=== PATIENT | female | born 1945 | race Caucasian/White ===

== ENCOUNTER 2017-04-13 12:52 | Inpatient (IN) | payer MEDICARE ==
[~2017-04-13] VITALS: Ht 162.6 cm; Wt 63.7 kg
[2017-04-13] MEDS ORDERED: ACETAMINOPHEN TAB 650MG DOSE (2X325MG) PO PRN (15:00)
[2017-04-13] MEDS ORDERED: FLEET ENEMA PR PRN (15:00)
[2017-04-13] MEDS ORDERED: MOM 30ML SUSPENSION UDC PO PRN (15:00)
[2017-04-13 15:03] VITALS: BP 162/86
[2017-04-13] MEDS ORDERED: LOVE1INJ SC (17:09)
[2017-04-13] MEDS ORDERED: ASPI81TA7 PO (17:09)
[2017-04-13] MEDS ORDERED: ATOR1TAB19 PO (17:09)
[2017-04-13] MEDS ORDERED: PANT40TA2 PO (17:12)
[2017-04-13] MEDS ORDERED: CYCL5TA PO (17:12)
[2017-04-13] MEDS ORDERED: NICODIS TD (17:12)
[2017-04-13] MEDS ORDERED: ENALAPRIL MALEATE 5 MG TAB PO ONE (18:15)
[2017-04-13 18:41] LABS: ANION GAP 9 MEQ/L (8-16); BLOOD UREA NITROGEN 19 MG/DL (7-18); CALCIUM LEVEL 8.9 MG/DL (8.8-10.2); CARBON DIOXIDE LEVEL 27 MEQ/L (21-32); CHLORIDE LEVEL 105 MEQ/L (98-107); GLOMERULAR FILTRATION RATE > 60.0 (>39); GLUCOSE, FASTING 155 MG/DL (83-110); POTASSIUM SERUM 4.1 MEQ/L (3.5-5.1); SODIUM LEVEL 141 MEQ/L (136-145)
--- NOTE | 2017-04-13 18:43 | PMRHPE ---
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 HISTORY OF PRESENT ILLNESS: Patient is a 72-year-old white female who was in her usual state of health until 04/10/2017 when she started to get progressively weaker with her right upper and lower extremity and having progressive difficulty speaking, feeling that her speech had become rather thick and cumbersome. Patient went to the [facility] and was evaluated and found to have sustained a left pontine cerebrovascular accident (CVA) causing her right hemiparesis. Patient is left hand dominant. PAST MEDICAL HISTORY: Includes 1. Atherosclerotic cardiovascular disease including hypertension and hyperlipidemia. 2. Tobacco dependence. 3. 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 PAST SURGICAL HISTORY: Includes a D C. ALLERGIES: PENICILLIN and AMOXICILLIN cause fairly immediate breakout of redness, itching, tenderness and swelling in the soles of the feet and palms of the hand progressing to heat and itching in the upper and lower extremities. FAMILY HISTORY: Noncontributory but patient notes her mother at an early age from unknown causes. MEDICATIONS ON ADMISSION: - Tylenol 650 mg for pain - enteric coated aspirin 81 mg daily for DVT and CVA prevention - atorvastatin 10 mg at bedtime for hyperlipidemia - Lovenox 40 mg every day for DVT prevention - Nicoderm patch 21 mg a day but I will be transitioning patient in a step waters decrease support team and 7 mg patches then stop - Pantoprazole 40 mg daily for GI protection - Milk of Magnesia for constipation - Senokot for bowel management - Fleet enema as needed constipation SOCIAL HISTORY: Patient lives with her sister. She has 2-4 steps into the house and then her bedroom is upstairs, though it can be moved downstairs initially. Patient does smoke. REVIEW OF SYSTEMS: Patient notes no significant problems outside the dysarthric speech, the intention tremor in the left upper extremity, the right hemiparesis and balance deficit. PHYSICAL EXAMINATION: Patient is a well-nourished, well-developed 72-year-old white female who looks slightly younger than stated age. She is in good spirits. VITAL SIGNS: Showed temperature 97.7, blood pressure of 162/86, pulse 84, respirations 18, pulse oximetry 92% on room air. HEENT: Shows right facial drop, tongue however is midline when extended. Speech is mildly dysarthric. Oral pharynx is without lesions. Nares show no blockage and septum is straight. Pupils equal, round, and reactive to light and accommodation and extraocular motions are intact. Hearing is fairly good. NECK: Is supple with normal motion. No significant lymph nodes found. Thyroid is midline and smooth of normal size. There are no carotid bruits. LUNGS: Clear in all birch to auscultation. CORONARY: Shows regular rate and rhythm with normal S1 and S2 and 2/4 radial pulses with good finger perfusion. ABDOMEN: Shows mild gaseous distention with tympany in spots throughout all quadrants, but normal bowel sounds and no significant tenderness were found in all quadrants. BACK: Is essentially non-tender. EXTREMITIES: Upper and lower extremities with normal function and range of motion. Patient with no resting tremor, but when she goes to write her name has marked intention tremor in the left upper extremity. NEUROLOGIC: She is alert and oriented times 4. Speech is clear, coherent and appropriate. Affect is pleasant, cooperative. Memory is grossly intact. Motor shows mild weakness in the right upper and lower extremity and sensorium is grossly intact to light touch and vibration in bilateral upper and lower extremities with 2/4 knee jerks, biceps, triceps, brachial radialis, trace ankle jerk and downgoing toes on plantar stimulation. Mood is good. Patient is pleasant and cooperative. LABORATORY DATA: Patient's laboratory work up at [facility] does not show anemia and showed normal electrolytes, LFTs, troponin and serum magnesium with INR being normal at 1.02. Cerebral imaging shows approximately a 1 cm left pontine CVA. ASSESSMENT/PLAN: 1. Rehabilitation of left pontine cerebrovascular accident (CVA) with secondary right hemiparesis, decreased balance, dysarthria with no clear apparent aphasia or dysphasia noted. Patient comes to us on a low-salt diet after being evaluated at [facility]. Patient however, has diminished ADLs, balance as well as mobility including her stairs and will need to make significant gains in these to allow return to home with her sister to provide some help and assistance. I feel patient will definitely speech and language pathology evaluation. I will submit for that as well as physical and occupational therapy. I anticipate length of stay to be 10-14 days will adjustment as heme evaluation is completed. 2. Atherosclerotic cardiovascular disease. Patient with hypertension on arriving following an [id number] trip with systolic blood pressure of 162/86. We will continue to monitor this and get medicine consult. Make consider adding a hypertensive medication if hypertension persists. 3. Intension tremor. Source is unknown and this has been a problem for the patient for a number of years. Depending on how patient is progressing, we will consider neurology consult to consider for medication to manage this as an inpatient versus having patient see neurology as an outpatient for this. 4. Tobacco dependent. We will go ahead and continue patient on Nicoderm and decrease from the current 21 mg to 14 mg starting on Tuesday, and the following Tuesday transition down to 7 mg with 24 hour patch and do that for a week and have patient discontinue. 5. Hyperlipidemia. We will go ahead and continue patient on atorvastatin. 6. Deep vein thrombosis prophylaxis. We will proceed with the enteric coated aspirin and Lovenox 40 mg as well as thromboembolic deterrent hose. (DIVYA). POST ADMISSION PHYSICIAN EVALUATION: I feel patient is consistent with the preadmission screening information and does appear to be very motivated to participate in and benefit from therapy and does appear to have the physical ability and induration to do the 3 hours of therapy per day. I anticipate she has a good prognosis for being able to be discharged to home with her sister who provides some help. Her estimated length of stay is 10-14 days. Time spent on chart review, H P, and documentation is greater than 70 minutes.
--- NOTE | 2017-04-13 19:26 | CR ---
DATE OF CONSULTATION: 04/13/2017 ATTENDING PHYSICIAN: Mindy Leon MD REASON FOR CONSULTATION: Hypertension. REQUESTING PHYSICIAN: Lobito Aguero MD of and R, PRIMARY CARE PROVIDER: None. DATE OF ADMISSION: 04/13/2017 HISTORY OF PRESENT ILLNESS: Ms. Souza is a 72-year-old female with past medical history significant for tobacco use who presented to [facility] on April 10 with complaints of right-sided weakness and difficulty walking that began on April 08. The patient reported that she had upper and lower extremity right-sided weakness and also had thick/slow speech. Evaluation at [facility] revealed normal CBC, CMP and troponin. She had a head CT which did not reveal any acute pathology, just periventricular white matter ischemia and atrophy. She had an MRI of the brain which revealed a 1 cm left pontine infarct. EKG was normal sinus rhythm at a heart rate of 95. No acute changes. She had an echocardiogram, which revealed normal left ventricular function, ejection fraction (EF) of 60%, normal right ventricular size, no significant valvular disease, negative bubble study. Carotid ultrasound revealed less than 50% stenosis bilaterally. Lipid profile revealed a cholesterol of 201, LDL 128, HDL 48 and triglyceride 156. She was initiated on aspirin and Lipitor as well as a nicotine patch. She started working with physical therapy and it was deemed that she would benefit from further therapy and was discharged to [facility] rehab. The patient reports continued weakness on the right upper and lower extremity. She does not feel that her speech has improved. She reports that it "thick" and slower than her baseline. She denies any trouble swallowing. No facial asymmetry. She is left-hand dominant. No sensory deficits. She denies any headache, lightheadedness or dizziness. No blurry/double vision or acute changes to her vision. No fevers, chills, chest pain/pressure, palpitations, shortness of breath, nausea, vomiting, abdominal pain, diarrhea, constipation, hematochezia or melena or urinary complaints. She ate her dinner well without any difficulty with swallowing. Speech is not significantly changed, still reports that it is slow and thick. The patient was found to have elevated blood pressure of 162/86, other vitals were stable. Given her elevated blood pressure, hospitalist consult was requested. PAST MEDICAL HISTORY: None. The patient does not have a primary care provider. PAST SURGICAL HISTORY: Dilation and curettage (D and C) [place] tooth. CURRENT MEDICATIONS - aspirin 81 mg daily - atorvastatin 10 mg by mouth at night - nicotine patch 21 mg transdermal daily - Protonix 40 mg daily - Flexeril 5 mg by mouth three times daily as needed ALLERGIES: PENICILLIN (rash and pruritus). SOCIAL HISTORY: The patient quit smoking this Tuesday. She was admitted into the hospital. She reports that she has smoked a little less than half a pack for about 50 years. Rare alcohol use. No illicit drugs. She lives with her sister. There are two dogs and two cats in the home, two horses in the barn. Last travel was in October to [place]. She does not work outside of the home. FAMILY HISTORY: She has two children, one daughter at the age of 39. Mother of unknown causes. She has a brother with MS. She reports that her sister received cardiac stents in her 40s. REVIEW OF SYSTEMS: As stated in HPI. In addition she denies any significant weight loss. No cough. No dysuria or hematuria. No unusual skin lesions. No history of diabetes or thyroid disorder. No history of previous stroke. No family history of stroke. No excessive bleeding or bruising. PHYSICAL EXAMINATION: Vital signs: Temperature 97.7, pulse 87, respiratory rate 18, blood pressure 162/86, pulse oximetry 92% on room air. General: The patient is alert and oriented times three. In no acute distress. HEENT: Normocephalic , atraumatic. Extraocular muscles are intact. Pupils are equally round and reactive to light. No scleral icterus. No nystagmus. Moist mucosa. Has a resting head tremor. Neck: Supple. No cervical lymphadenopathy or thyromegaly. There are no carotid bruits. Heart: Normal S1-S2, regular rate and rhythm. No murmur appreciated. Lungs: Clear to auscultation bilaterally. No rales, rhonchi or wheezing. Abdomen: Soft, nontender, nondistended. Positive bowel sounds. No rebound, guarding or rigidity. Extremities: No cyanosis or edema. Positive pedal pulses bilaterally. Neurologic: The patient's speech is slow but coherent. Cranial nerves II-XII are grossly intact. Reflexes are intact. Motor strength is 4/5 for the right upper extremity. All other extremities are 5/5. Sensation is intact. Skin: Warm and dry. No significant rashes noted. Good skin turgor. LABORATORY DATA: None. IMAGING STUDIES: None here at [facility]. In addition to the aforementioned she also had a chest x-ray which did not reveal any acute pathology at [facility]. ASSESSMENT/PLAN: 1. CVA with right-sided weakness and expressive aphasia. The patient will be undergoing physical therapy. She is on aspirin 81 mg daily as well as Lipitor 10 mg daily. She was found to have a 1 cm left pontine infarct on MRI. She is to continue with rehabilitation. 2. Hypertension. Blood pressure was 162/86. She was diagnosed with this CVA on April 10. Permissive hypertension is no longer necessary. Will treat her with enalapril 5 mg twice daily and continue to monitor her blood pressure. 3. Tobacco use. The patient is currently on nicotine patch. 4. Deep venous thrombosis (DVT) prophylaxis. She appears to be on Lovenox daily. Thank you for the consultation and allowing us to participate in the care of Ms. Souza. We will continue to follow along with you. My preceptor for this patient encounter was Dr. Mindy Leon. The preceptor was physically present in the building during the encounter and was fully available. As needed, all aspects of the patient interview, examination, medical decision making process, and medical care plan development were reviewed and approved by the preceptor. The preceptor is aware and concurs with the plan as stated in the body of this note and will attest to such by his/her cosignature. I have both independently examined this patient as well as reviewed the consult. I have discussed in detail with the resident the findings and plan of treatment as documented in the residents note. I will continue to follow the patient and offer further guidance to the patients care as necessary during this hospital stay. Mindy JO
[2017-04-13] MEDS: ATORVASTATIN 10 MG TAB PO SCH (20:10)
[2017-04-13 20:42] VITALS: BP 136/78
[2017-04-13] MEDS: SENNA 8.6 MG TAB (SENOKOT) PO SCH (21:00)
[2017-04-14 06:40] VITALS: BP 125/62
[2017-04-14 07:27] LABS: BASO % 0.3 % (0.0-1.0); EOS # 0.2 K/mm3 (0.0-0.50); EOS % 1.8 % (0.0-3.0); LARGE UNSTAINED CELL # 0.1 K/mm3 (0.0-0.4); LARGE UNSTAINED CELL % 0.8 % (0.0-4.0); LYMPH % 18.6 % (24.0-44.0); MEAN CORPUSCULAR HEMOGLOBIN 28.3 pg (27.0-33.0); MEAN CORPUSCULAR HGB CONC 33.3 g/dl (32.0-36.5); MEAN CORPUSCULAR VOLUME 84.8 fl (80.0-96.0); MONO # 0.5 K/mm3 (0.0-0.8); MONO % 4.9 % (0.0-5.0); NEUTROPHILS # 7.5 K/mm3 (1.8-7.7); NEUTROPHILS % 73.6 % (36.0-66.0); PLATELET COUNT, AUTOMATED 233 k/mm3 (150-450); RED CELL DISTRIBUTION WIDTH 12.8 % (11.5-14.5); WHITE BLOOD COUNT 10.2 K/mm3 (4.0-10.0)
[2017-04-14 07:50] LABS: ALBUMIN 3.3 GM/DL (3.2-5.2); ALBUMIN/GLOBULIN RATIO 1.27 (1.00-1.93); ALKALINE PHOSPHATASE 79 U/L (45-117); ALT/SGPT 18 U/L (12-78); ANION GAP 9 MEQ/L (8-16); AST/SGOT 7 U/L (15-37); BILIRUBIN,TOTAL 0.5 MG/DL (0.2-1.0); BLOOD UREA NITROGEN 18 MG/DL (7-18); CALCIUM LEVEL 8.5 MG/DL (8.8-10.2); CARBON DIOXIDE LEVEL 26 MEQ/L (21-32); CHLORIDE LEVEL 107 MEQ/L (98-107); CREATININE FOR GFR 0.75 MG/DL (0.55-1.02); GLOMERULAR FILTRATION RATE > 60.0 (>39); GLUCOSE, FASTING 112 MG/DL (83-110); POTASSIUM SERUM 4.3 MEQ/L (3.5-5.1); SODIUM LEVEL 142 MEQ/L (136-145); TOTAL PROTEIN 5.9 GM/DL (6.4-8.2)
[2017-04-14] MEDS: PANTOPRAZOLE 40MG TAB (PROTONIX) PO SCH (08:31)
[2017-04-14] MEDS: ENALAPRIL MALEATE 5 MG TAB PO SCH ×2 (08:31→20:26)
[2017-04-14] MEDS: NICOTINE 21MG/24HR 1 EA TRANSDERMAL TD SCH (08:32)
[2017-04-14] MEDS: ENOXAPARIN 40 MG/0.4 ML SYRINGE (J1650) SC SCH (08:32)
[2017-04-14] MEDS: ASPIRIN 81 MG ENTERIC TAB PO SCH (11:03)
--- NOTE | 2017-04-14 11:20 | IPNPDOC ---
Dolly Operator Progress Note DATE OF SERVICE: 04/14/2017 DATE OF ADMISSION: April 13, 2017 at 14:50 INPATIENT REHABILITATION ADMISSION DAY: #1 SUBJECTIVE: Patient is a 72-year-old white female with left pontine CVA with right hemiparesis and dysarthria. Patient reports having slept well and overall feeling well with no come planes of pain or other problems except for her stroke. ALLERGIES: See Below MEDICATIONS: Reviewed, see below. OBJECTIVE: VITAL SIGNS: Please see below. PHYSICAL EXAMINATION: GENERAL: Well-nourished well-developed elderly white female who is alert and oriented 4. Speech remains mild to moderately dysarthric but no gurgling noises are appreciated and the quality is speech is appropriate in complexity. HEENT: Mild right facial droop. CARDIOVASCULAR: Regular rate and rhythm with normal S1 and S2. 2/4 radial pulses. LUNGS: All birch clear to auscultation. ABDOMEN: Benign, nontender with normal bowel sounds in all quadrants. NEUROLOGICAL: Patient with mild right hemiparesis is in good spirits. SKIN: No lesions. LABORATORY DATA: Reviewed. Please see below. MICROBIOLOGY: Please see below. IMAGING: No new imaging. DVT prophylaxis ordered?: Lovenox and DIVYA hose. ASSESSMENT AND PLAN: 1. Rehabilitation of left pontine CVA: Patient starting team evaluation process to be discussed this afternoon in team rounds by PT, OT and speech-language pathology along with rehabilitation nursing and physiatry. Team feels patient is doing well and should meet d/c to home goals by 04/20/17 as she is using a Quad Cane now. 2. Diabetes mellitus: Blood sugars have been fairly well controlled since transfer to this unit. 3. DVT prophylaxis: Patient appears to be tolerating Lovenox injections and will continue with DIVYA hose and work to advance gaiting. TIME SPENT: Chart Review, examination and documentation greater than 35 minutes. Allergies Coded Allergies: Penicillins (Verified Allergy, Intermediate, Purititic rash of soles/ palms then red warm limbs, 04/13/17) PCN and Amoxicillin Vital Signs Vital Signs Date Time Temp Pulse Resp B/P (MAP) Pulse Ox O2 Delivery O2 Flow Rate FiO2 04/14/17 08:31 136/78 04/14/17 06:40 99.4 73 18 92 Room Air Laboratory Data CBC/BMP Laboratory Tests 04/13/17 17:49 Calcium Level 8.9 04/14/17 07:10 Calcium Level 8.5 L, Red Blood Count 4.86, Mean Corpuscular Volume 84.8, Mean Corpuscular Hemoglobin 28.3, Mean Corpuscular Hemoglobin Concent 33.3, Red Cell Distribution Width 12.8, Neutrophils (%) (Auto) 73.6 H, Lymphocytes (%) (Auto) 18.6 L, Monocytes (%) (Auto) 4.9, Eosinophils (%) (Auto) 1.8, Basophils (%) ( Auto) 0.3, Neutrophils # (Auto) 7.5, Lymphocytes # (Auto) 2.0, Monocytes # (Auto ) 0.5, Eosinophils # (Auto) 0.2, Basophils # (Auto) 0.0, Aspartate Amino Transf (AST/SGOT) 7 L, Alanine Aminotransferase (ALT/SGPT) 18, Alkaline Phosphatase 79 , Total Bilirubin 0.5, Total Protein 5.9 L, Albumin 3.3 Labs 24H Laboratory Tests 2 04/13/17 17:49: Anion Gap 9, Glomerular Filtration Rate > 60.0, Blood Urea Nitrogen 19H, Creatinine 0.80, Sodium Level 141, Potassium Level 4.1, Chloride Level 105, Carbon Dioxide Level 27, Calcium Level 8.9 04/13/17 20:01: Urine Appearance CLEAR, Urine Color YELLOW, Urine pH 5.0, Urine Specific [place] 1.016, Urine Protein NEGATIVE, Urine Glucose (UA) NEGATIVE, Urine Ketones NEGATIVE, Urine Urobilinogen 0.2, Urine Bilirubin NEGATIVE, Urine Leukocyte Esterase 1+H, Urine Blood NEGATIVE, Urine Nitrite NEGATIVE, Urine WBC (Auto) 6H, Urine RBC (Auto) 4H, Urine Hyaline Casts (Auto) 0, Urine Bacteria ( Auto) 2+H, Urine Squamous Epithelial Cells 2, Urine Mucus (Auto) SMALL, Urine Sperm (Auto) 04/14/17 07:10: Anion Gap 9, Glomerular Filtration Rate > 60.0, Blood Urea Nitrogen 18, Creatinine 0.75, Sodium Level 142, Potassium Level 4.3, Chloride Level 107, Carbon Dioxide Level 26, Calcium Level 8.5L, White Blood Count 10.2H, Red Blood Count 4.86, Hemoglobin 13.7, Hematocrit 41.2, Mean Corpuscular Volume 84.8, Mean Corpuscular Hemoglobin 28.3, Mean Corpuscular Hemoglobin Concent 33.3, Red Cell Distribution Width 12.8, Platelet Count 233, Neutrophils (%) (Auto) 73.6H, Lymphocytes (%) (Auto) 18.6L, Monocytes (%) (Auto) 4.9, Eosinophils (%) (Auto) 1.8, Basophils (%) (Auto) 0.3, Neutrophils # (Auto) 7.5, Lymphocytes # (Auto) 2.0, Monocytes # (Auto) 0.5, Eosinophils # (Auto) 0.2, Basophils # (Auto) 0.0, Large Unclassified Cells % 0.8, Large Unclassified Cells # 0.1, Aspartate Amino Transf (AST/SGOT) 7L, Alanine Aminotransferase (ALT/SGPT) 18, Alkaline Phosphatase 79, Total Bilirubin 0.5, Total Protein 5.9L, Albumin 3.3, Albumin/ Globulin Ratio 1.27 Current Medications Current Medications Current Medications Acetaminophen (Tylenol Tab) 650 mg Q4HP PRN PO MILD PAIN (PS 1-4); Start at 15:00; Stop 05/13/17 at 14:59 Aspirin (Ecotrin) 81 mg DAILY PO Last administered on 04/14/17 11:03; Start at 09:00; Stop 05/14/17 at 08:59 Atorvastatin Calcium (Lipitor) 10 mg QHS PO Last administered on 04/13/17 20: 10; Start 04/13/17 at 21:00; Stop 05/13/17 at 20:59 Enalapril Maleate (Vasotec) 5 mg BID PO Last administered on 04/14/17 08:31; Start 04/14/17 at 09:00; Stop 05/14/17 at 08:59 Enoxaparin Sodium (Lovenox) 40 mg DAILY SC Last administered on 04/14/17 08:32 ; Start 04/14/17 at 09:00; Stop 04/19/17 at 08:59 Home Med (Med Rec Complete!) ASDIRECTED XX ; Start 04/13/17 at 17:15; Stop at 17:58; Status DC Magnesium Hydroxide (Milk Of Magnesia) 30 ml DAILYPRN PRN PO CONSTIPATION; Start 04/13/17 at 15:00; Stop 05/13/17 at 14:59 Nicotine (Nicoderm Cq 14mg) 1 patch DAILY TD ; Start 04/16/17 at 09:00; Stop 04/23/17 at 06:00 Nicotine (Nicoderm Cq 21mg) 1 patch DAILY TD Last administered on 04/14/17 08: 32; Start 04/14/17 at 09:00; Stop 04/16/17 at 06:00 Nicotine (Nicoderm Cq 7 Mg) 1 patch DAILY TD ; Start 04/23/17 at 09:00; Stop 04/29 at 09:00 Pantoprazole Sodium (Protonix) 40 mg DAILY PO Last administered on 04/14/17 08 :31; Start 04/14/17 at 09:00; Stop 05/14/17 at 08:59 Senna (Senokot) 1 tab QHS PO ; Start 04/13/17 at 21:00; Stop 05/13/17 at 20:59 Sodium Biphosphate/ Sodium Phosphate (Fleet Enema) 1 ea DAILYPRN PRN [place] CONSTIPATION; Start 04/13/17 at 15:00; Stop 05/13/17 at 14:59 CINDY VYAS MD April 14, 2017 11:20
--- NOTE | 2017-04-14 11:41 | IPNPDOC ---
Subjective Date Seen The patient was seen on 04/14/17. Subjective Chief Complaint/HPI The patient is a 72-year-old female admitted with a reason for visit of CVA. Events since last encounter Pt states she is feeling well and has no complaints. ENT: Denies: Head Aches, Ear Pain, Dysphagia Pulmonary: Denies: Dyspnea, Cough Cardiovascular: Denies: Chest Pain, Palpitations, Orthopnea, Paroxysmal Noc. Dyspnea, Lt Headedness Gastrointestinal: Denies: Nausea, Vomiting, Abdominal Pain, Diarrhea, Constipation Genitourinary: Denies: Dysuria, Frequency, Incontinence, Retention Objective Physical Examination General Exam: Positive: Alert Eye Exam: Positive: PERRLA ENT Exam: Positive: Atraumatic Neck Exam: Positive: Supple Chest Exam: Positive: Clear to auscultation, Normal air movement Heart Exam: Positive: Rate Normal, Regular Rhythm, Normal S1, Normal S2, Negative: Murmurs, Rubs Abdomen Exam: Positive: Normal bowel sounds, Soft, Negative: Tenderness, Hepatospenomegaly Skin Exam: Positive: Nl turgor and temperature Assessment /Plan Problems (1) CVA (cerebral vascular accident) Problem Text: * Mgmt as per Sr [place]/ARU * PT/OT/ST * ASA 81mg/statin. (2) HTN (hypertension) Problem Text: * Cont Vasotec * BMP today stable renal function. * BP controlled. (3) Hyperlipemia Problem Text: * Cont statin (4) Tobacco use Problem Text: * Nicoderm * Cont to encourage cessation. Plan/VTE VTE Prophylaxis Ordered?: Yes (lovenox) Disposition as per ARU VS, I&O, 24H, [place] Vital Signs/I&O Vital Signs Date Time Temp Pulse Resp B/P (MAP) Pulse Ox O2 Delivery O2 Flow Rate FiO2 04/14/17 08:31 136/78 04/14/17 06:40 99.4 73 18 92 Room Air I&O- Last 24 Hours up to 6 AM 04/14/17 06:00 Intake Total 360 ml Output Total 150 ml Balance 210 ml Laboratory Data 24H LABS Laboratory Tests 2 04/13/17 17:49: Anion Gap 9, Glomerular Filtration Rate > 60.0, Blood Urea Nitrogen 19H, Creatinine 0.80, Sodium Level 141, Potassium Level 4.1, Chloride Level 105, Carbon Dioxide Level 27, Calcium Level 8.9 04/13/17 20:01: Urine Appearance CLEAR, Urine Color YELLOW, Urine pH 5.0, Urine Specific [place] 1.016, Urine Protein NEGATIVE, Urine Glucose (UA) NEGATIVE, Urine Ketones NEGATIVE, Urine Urobilinogen 0.2, Urine Bilirubin NEGATIVE, Urine Leukocyte Esterase 1+H, Urine Blood NEGATIVE, Urine Nitrite NEGATIVE, Urine WBC (Auto) 6H, Urine RBC (Auto) 4H, Urine Hyaline Casts (Auto) 0, Urine Bacteria ( Auto) 2+H, Urine Squamous Epithelial Cells 2, Urine Mucus (Auto) SMALL, Urine Sperm (Auto) 04/14/17 07:10: Anion Gap 9, Glomerular Filtration Rate > 60.0, Blood Urea Nitrogen 18, Creatinine 0.75, Sodium Level 142, Potassium Level 4.3, Chloride Level 107, Carbon Dioxide Level 26, Calcium Level 8.5L, White Blood Count 10.2H, Red Blood Count 4.86, Hemoglobin 13.7, Hematocrit 41.2, Mean Corpuscular Volume 84.8, Mean Corpuscular Hemoglobin 28.3, Mean Corpuscular Hemoglobin Concent 33.3, Red Cell Distribution Width 12.8, Platelet Count 233, Neutrophils (%) (Auto) 73.6H, Lymphocytes (%) (Auto) 18.6L, Monocytes (%) (Auto) 4.9, Eosinophils (%) (Auto) 1.8, Basophils (%) (Auto) 0.3, Neutrophils # (Auto) 7.5, Lymphocytes # (Auto) 2.0, Monocytes # (Auto) 0.5, Eosinophils # (Auto) 0.2, Basophils # (Auto) 0.0, Large Unclassified Cells % 0.8, Large Unclassified Cells # 0.1, Aspartate Amino Transf (AST/SGOT) 7L, Alanine Aminotransferase (ALT/SGPT) 18, Alkaline Phosphatase 79, Total Bilirubin 0.5, Total Protein 5.9L, Albumin 3.3, Albumin/ Globulin Ratio 1.27 CBC/BMP Laboratory Tests 04/13/17 17:49 Calcium Level 8.9 04/14/17 07:10 Calcium Level 8.5 L, Red Blood Count 4.86, Mean Corpuscular Volume 84.8, Mean Corpuscular Hemoglobin 28.3, Mean Corpuscular Hemoglobin Concent 33.3, Red Cell Distribution Width 12.8, Neutrophils (%) (Auto) 73.6 H, Lymphocytes (%) (Auto) 18.6 L, Monocytes (%) (Auto) 4.9, Eosinophils (%) (Auto) 1.8, Basophils (%) ( Auto) 0.3, Neutrophils # (Auto) 7.5, Lymphocytes # (Auto) 2.0, Monocytes # (Auto ) 0.5, Eosinophils # (Auto) 0.2, Basophils # (Auto) 0.0, Aspartate Amino Transf (AST/SGOT) 7 L, Alanine Aminotransferase (ALT/SGPT) 18, Alkaline Phosphatase 79 , Total Bilirubin 0.5, Total Protein 5.9 L, Albumin 3.3 Bethanie Lockhart April 14, 2017 11:41
[2017-04-14 14:00] VITALS: BP 142/66
[2017-04-14] MEDS: SENNA 8.6 MG TAB (SENOKOT) PO SCH (20:26)
[2017-04-14] MEDS: ATORVASTATIN 10 MG TAB PO SCH (20:26)
[2017-04-14 20:30] VITALS: BP 175/88
[2017-04-15 05:45] VITALS: BP 130/58
[2017-04-15] MEDS: PANTOPRAZOLE 40MG TAB (PROTONIX) PO SCH (09:09)
[2017-04-15] MEDS: ASPIRIN 81 MG ENTERIC TAB PO SCH (09:09)
[2017-04-15] MEDS: NICOTINE 21MG/24HR 1 EA TRANSDERMAL TD SCH (09:10)
[2017-04-15] MEDS: ENALAPRIL MALEATE 5 MG TAB PO SCH ×2 (09:10→20:28)
[2017-04-15] MEDS: ENOXAPARIN 40 MG/0.4 ML SYRINGE (J1650) SC SCH (09:10)
--- NOTE | 2017-04-15 10:33 | IPNPDOC ---
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 Patient reports having slept well and overall feeling well with no come planes of pain or other problems except for her stroke. ALLERGIES: See Below MEDICATIONS: Reviewed, see below. OBJECTIVE: VITAL SIGNS: Please see below. PHYSICAL EXAMINATION: GENERAL: Well-nourished well-developed elderly white female who is alert and oriented 4. Speech remains with mild dysarthria but no gurgling noises are appreciated and the quality is speech is appropriate in complexity. HEENT: Mild right facial droop otherwise normocephalic/atraumatic. CARDIOVASCULAR: Regular rate and rhythm with normal S1 and S2. 2/4 radial pulses. LUNGS: All birch clear to auscultation with good air movement. ABDOMEN: Benign, nontender with normal bowel sounds in all quadrants. NEUROLOGICAL: Patient with mild right hemiparesis is in good spirits. Some decrease in dysarthria. SKIN: No lesions. LABORATORY DATA: Reviewed. Please see below. MICROBIOLOGY: Please see below. IMAGING: No new imaging. DVT prophylaxis ordered?: Lovenox and DIVYA hose. ASSESSMENT AND PLAN: 1. Rehabilitation of left pontine CVA: Patient continues to work hard with physical, occupational, and speech language pathology. She is doing very well on gaiting that does need to make further improvements in ADLs and needs to become fairly proficient with stairs to return home with her sister. Her speech is becoming somewhat less dysarthric. 2. Diabetes mellitus: Blood sugars have been fairly well controlled since transfer to this unit. 3. DVT prophylaxis: Patient appears to be tolerating Lovenox injections and will continue with DIVYA hose and work to advance gaiting. TIME SPENT: Chart Review, examination and documentation required greater than 25 minutes. Allergies Coded Allergies: Penicillins (Verified Allergy, Intermediate, Purititic rash of soles/ palms then red warm limbs, 04/13/17) PCN and Amoxicillin Vital Signs Vital Signs Date Time Temp Pulse Resp B/P (MAP) Pulse Ox O2 Delivery O2 Flow Rate FiO2 04/15/17 09:10 130/58 04/15/17 05:45 98.2 79 18 94 Room Air Current Medications Current Medications Current Medications Acetaminophen (Tylenol Tab) 650 mg Q4HP PRN PO MILD PAIN (PS 1-4); Start at 15:00; Stop 05/13/17 at 14:59 Aspirin (Ecotrin) 81 mg DAILY PO Last administered on 04/15/17 09:09; Start at 09:00; Stop 05/14/17 at 08:59 Atorvastatin Calcium (Lipitor) 10 mg QHS PO Last administered on 04/14/17 20: 26; Start 04/13/17 at 21:00; Stop 05/13/17 at 20:59 Enalapril Maleate (Vasotec) 5 mg BID PO Last administered on 04/15/17 09:10; Start 04/14/17 at 09:00; Stop 05/14/17 at 08:59 Enoxaparin Sodium (Lovenox) 40 mg DAILY SC Last administered on 04/15/17 09:10 ; Start 04/14/17 at 09:00; Stop 04/19/17 at 08:59 Home Med (Med Rec Complete!) ASDIRECTED XX ; Start 04/13/17 at 17:15; Stop at 17:58; Status DC Magnesium Hydroxide (Milk Of Magnesia) 30 ml DAILYPRN PRN PO CONSTIPATION; Start 04/13/17 at 15:00; Stop 05/13/17 at 14:59 Nicotine (Nicoderm Cq 14mg) 1 patch DAILY TD ; Start 04/16/17 at 09:00; Stop 04/23/17 at 06:00 Nicotine (Nicoderm Cq 21mg) 1 patch DAILY TD Last administered on 04/15/17 09: 10; Start 04/14/17 at 09:00; Stop 04/16/17 at 06:00 Nicotine (Nicoderm Cq 7 Mg) 1 patch DAILY TD ; Start 04/23/17 at 09:00; Stop 04/29 at 09:00 Pantoprazole Sodium (Protonix) 40 mg DAILY PO Last administered on 04/15/17 09 :09; Start 04/14/17 at 09:00; Stop 05/14/17 at 08:59 Senna (Senokot) 1 tab QHS PO ; Start 04/13/17 at 21:00; Stop 05/13/17 at 20:59 Sodium Biphosphate/ Sodium Phosphate (Fleet Enema) 1 ea DAILYPRN PRN [place] CONSTIPATION; Start 04/13/17 at 15:00; Stop 05/13/17 at 14:59 CINDY VYAS MD April 15, 2017 10:33
[2017-04-15 14:00] VITALS: BP 123/86
--- NOTE | 2017-04-15 16:13 | IPN ---
DATE: 04/15/2017 SUBJECTIVE: Patient is seen and examined in the room today. Patient is sitting on the chair reading her book comfortably. Patient stated there were no overnight events reported. Patient does not have any acute complaints or acute changes. OBJECTIVE: VITAL SIGNS: Temperature is 98.2, pulse 79, respirations 18, blood pressure 130/58, pulse oximetry 94% in room air. GENERAL: No sign of acute distress, alert and oriented times three. HEENT: Normocephalic, atraumatic. Extraocular motors grossly intact. CARDIOVASCULAR: Positive S1, S2, regular rate. LUNGS: Clear to auscultation bilaterally. ABDOMEN: Soft, nontender, nondistended. Bowel sounds present. No rebound. No guarding. EXTREMITIES: No edema. No sign of cyanosis. ASSESSMENT AND PLAN: 1. CVA. Patient still has right-sided weakness. Continue her rehabilitation per the rehabilitation team recommendations. Patient is on aspirin and statin. 2. Hypertension. Patient is on Vasotec twice a day. Blood pressure is stable. 3. Hyperlipidemia. Continue statin. 4. History of tobacco abuse. Patient is on nicotine patch. 5. Deep venous thrombosis (DVT) prophylaxis. Patient is on Lovenox.
[2017-04-15 20:00] VITALS: BP 160/90
[2017-04-15] MEDS: ATORVASTATIN 10 MG TAB PO SCH (20:27)
[2017-04-15] MEDS: SENNA 8.6 MG TAB (SENOKOT) PO SCH (21:00)
[2017-04-16 06:00] VITALS: BP 148/78
[2017-04-16 06:33] LABS: MEAN CORPUSCULAR HGB CONC 32.9 g/dl (32.0-36.5); RED CELL DISTRIBUTION WIDTH 12.6 % (11.5-14.5); WHITE BLOOD COUNT 8.4 K/mm3 (4.0-10.0)
[2017-04-16] MEDS: PANTOPRAZOLE 40MG TAB (PROTONIX) PO SCH (08:41)
[2017-04-16] MEDS: ASPIRIN 81 MG ENTERIC TAB PO SCH (08:41)
[2017-04-16] MEDS: ENALAPRIL MALEATE 5 MG TAB PO SCH (08:41)
[2017-04-16] MEDS: ENOXAPARIN 40 MG/0.4 ML SYRINGE (J1650) SC SCH (08:42)
[2017-04-16] MEDS: NICOTINE 14 MG/24 HR TRANSDERMAL TD SCH (08:42)
[2017-04-16] MEDS ORDERED: LISINOPRIL 10 MG TAB PO SCH (09:00)
[2017-04-16 14:25] VITALS: BP 142/66
--- NOTE | 2017-04-16 19:10 | IPN ---
DATE: 04/16/2017 SUBJECTIVE: Patient seen and examined in the room today. Patient is resting comfortably in a chair. Patient denies any acute complaint or acute issues. No overnight events reported. OBJECTIVE: VITAL SIGNS: Temperature is 97.6, pulse 78, respirations 18, blood pressure is 148/78, pulse oximetry 94% in room air. GENERAL: No sign of acute distress. Alert and oriented times three. HEENT: Normocephalic, atraumatic. Extraocular motor grossly intact. CARDIOVASCULAR: Positive S1, S2, regular rate. LUNGS: Clear to auscultation bilaterally. ABDOMEN: Soft, nontender, nondistended. Bowel sounds present. No rebound. No guarding. EXTREMITIES: No edema. No sign of cyanosis. ASSESSMENT AND PLAN: 1. Hypertension. Patient has been on Norvasc twice a day; however, there is still recorded hypertension intermittently. We will switch patient to another angiotensin-converting enzyme (ROBIN) inhibitor with a longer half-life. Will continue to adjust the dose accordingly. 2. Cerebrovascular accident (CVA). Patient still has right-sided weakness. Patient is receiving acute rehabilitation in the acute recovery unit (ARU). Will refer the rehabilitation management to the primary team. 3. Hyperlipidemia. Continue statin. 4. History of tobacco abuse, on nicotine patch. 5. Deep vein thrombosis (DVT) prophylaxis, on Lovenox.
[2017-04-16] MEDS: LISINOPRIL 10 MG TAB PO SCH (20:50)
[2017-04-16] MEDS: ATORVASTATIN 10 MG TAB PO SCH (20:51)
[2017-04-16] MEDS: SENNA 8.6 MG TAB (SENOKOT) PO SCH (21:00)
[2017-04-16 22:00] VITALS: BP 177/84
[2017-04-17 06:00] VITALS: BP 165/70
[2017-04-17] MEDS: NICOTINE 14 MG/24 HR TRANSDERMAL TD SCH (09:32)
[2017-04-17] MEDS: PANTOPRAZOLE 40MG TAB (PROTONIX) PO SCH (09:34)
[2017-04-17] MEDS: ENOXAPARIN 40 MG/0.4 ML SYRINGE (J1650) SC SCH (09:34)
[2017-04-17] MEDS: ASPIRIN 81 MG ENTERIC TAB PO SCH (09:34)
[2017-04-17] MEDS: LISINOPRIL 10 MG TAB PO SCH ×2 (09:35→20:54)
[2017-04-17] MEDS ORDERED: LISINOPRIL 20 MG TAB PO ONE (11:30)
[2017-04-17 14:00] VITALS: BP 110/57
--- NOTE | 2017-04-17 15:45 | IPN ---
DATE: 04/17/2017 SUBJECTIVE: Patient was seen and examined after her physical therapy session. Patient is doing well with physical therapy, no acute complaints. OBJECTIVE: VITAL SIGNS: Temperature 96.7, pulse 70, respirations 18, blood pressure 165/70, pulse oximetry 91% in room air. GENERAL: No sign of acute distress, alert and oriented times three. HEENT: Normocephalic, atraumatic. Extraocular motors grossly intact. CARDIOVASCULAR: Positive S1, S2, regular rate. LUNGS: Clear to auscultation bilaterally. ABDOMEN: Soft, nontender, nondistended. Bowel sounds present. No rebound. No guarding. EXTREMITIES: No edema. No cyanosis. LABORATORY DATA: WBC 8.4, hemoglobin 13.3, hematocrit 40.3, platelet count 237. ASSESSMENT AND PLAN: 1. Hypertension. Patient was switched to lisinopril. Apparently the dosage is not enough to control patient's blood pressure. The dosage was increased from 10 mg twice a day to 30 mg twice a day. 2. CVA. Patient still has intermittent right-sided weakness. Patient is receiving acute rehabilitation in the acute rehabilitation unit (ARU). Will defer the rehabilitation management to the primary team. 3. Hyperlipidemia. On statin. 4. History of tobacco abuse. On nicotine patch. 5. Deep venous thrombosis (DVT) prophylaxis. On Lovenox.
[2017-04-17 20:00] VITALS: BP 178/78
[2017-04-17] MEDS: SENNA 8.6 MG TAB (SENOKOT) PO SCH (20:51)
[2017-04-17] MEDS: ATORVASTATIN 10 MG TAB PO SCH (20:54)
[2017-04-17 21:10] VITALS: BP 138/82
[2017-04-18 06:00] VITALS: BP 172/80
[2017-04-18] MEDS: ASPIRIN 81 MG ENTERIC TAB PO SCH (08:13)
[2017-04-18] MEDS: ENOXAPARIN 40 MG/0.4 ML SYRINGE (J1650) SC SCH (08:13)
[2017-04-18] MEDS: PANTOPRAZOLE 40MG TAB (PROTONIX) PO SCH (08:13)
[2017-04-18 08:14] VITALS: BP 172/80
[2017-04-18] MEDS: NICOTINE 14 MG/24 HR TRANSDERMAL TD SCH (08:14)
[2017-04-18] MEDS: LISINOPRIL 10 MG TAB PO SCH (08:14)
[2017-04-18 14:00] VITALS: BP 186/83
--- NOTE | 2017-04-18 14:23 | IPN ---
DATE: 04/18/2017 SUBJECTIVE: The patient is seen and examined during physical therapy. He denies any acute complaints or acute changes. The patient performed well during the session. OBJECTIVE: VITAL SIGNS: Temperature 99. Pulse 83. Respirations 19. Blood pressure 172/80. Pulse oximetry 95% in room air. GENERAL: No signs of acute distress. Oriented times three. HEENT: Normocephalic, atraumatic. Extraocular movements grossly intact. CARDIOVASCULAR: S1, S2, regular rate. LUNGS: Clear to auscultation bilaterally. ABDOMEN: Soft. Nontender. Nondistended. Bowel sounds present. No rebound. No guarding. EXTREMITIES: No edema. No cyanosis. ASSESSMENT AND PLAN: 1. Hypertension. Will continue to adjust lisinopril dosage. If patient's blood pressure still cannot be controlled with lisinopril, we may consider adding a second agent. 2. CVA. Continued to have intermittent right sided weakness. The patient has received acute rehabilitation in the acute rehabilitation unit. We will refer rehabilitation management to the primary team. 3. Hyperlipidemia. On statin. 4. History of tobacco abuse. On nicotine patch. 5. Deep vein thrombosis (DVT) prophylaxis. On Lovenox.
[2017-04-18 20:00] VITALS: BP 160/80
[2017-04-18] MEDS: SENNA 8.6 MG TAB (SENOKOT) PO SCH (21:00)
[2017-04-18] MEDS: ATORVASTATIN 10 MG TAB PO SCH (21:03)
[2017-04-18] MEDS: LISINOPRIL 40 MG TAB PO SCH (21:03)
[2017-04-19 06:00] VITALS: BP 146/71
[2017-04-19 06:01] LABS: MEAN CORPUSCULAR VOLUME 84.8 fl (80.0-96.0); RED CELL DISTRIBUTION WIDTH 12.5 % (11.5-14.5); WHITE BLOOD COUNT 7.9 K/mm3 (4.0-10.0)
[2017-04-19] MEDS: ASPIRIN 81 MG ENTERIC TAB PO SCH (08:07)
[2017-04-19] MEDS: LISINOPRIL 40 MG TAB PO SCH ×2 (08:07→20:30)
[2017-04-19] MEDS: PANTOPRAZOLE 40MG TAB (PROTONIX) PO SCH (08:07)
[2017-04-19] MEDS: NICOTINE 14 MG/24 HR TRANSDERMAL TD SCH (08:08)
[2017-04-19] MEDS: ENOXAPARIN 40 MG/0.4 ML SYRINGE (J1650) SC SCH (08:08)
--- NOTE | 2017-04-19 13:07 | IPNPDOC ---
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 Patient reports having slept well and overall feeling well with no complaints of pain or other problems except for her stroke. ALLERGIES: See Below MEDICATIONS: Reviewed, see below. OBJECTIVE: VITAL SIGNS: Please see below. PHYSICAL EXAMINATION: GENERAL: Well-nourished well-developed elderly white female who is alert and oriented 4. Speech show less of the mild dysarthria with no gurgling noises and the quality is speech is appropriate in complexity and subject to the moment. HEENT: Mild right facial droop otherwise normocephalic/atraumatic. CARDIOVASCULAR: Regular rate and rhythm with normal S1 and S2. 2/4 radial pulses. LUNGS: All birch clear to auscultation with good air movement. ABDOMEN: Benign, nontender with normal bowel sounds in all quadrants. NEUROLOGICAL: Patient with mild right hemiparesis is in good spirits. Some decrease in dysarthria. SKIN: No lesions. LABORATORY DATA: Reviewed. Please see below. MICROBIOLOGY: Please see below. IMAGING: No new imaging. DVT prophylaxis ordered?: Lovenox and DIVYA hose. ASSESSMENT AND PLAN: 1. Rehabilitation of left pontine CVA: Patient continues to work hard with physical, occupational, and speech language pathology. She is doing very well on ambulation, but does need to make further improvements in ADLs and needs to become fairly proficient with stairs to return home with her sister. Her speech is becoming progressively less dysarthric. 2. Diabetes mellitus: Blood sugars have been fairly well controlled since transfer to this unit. 3. DVT prophylaxis: Patient appears to be tolerating Lovenox injections and will continue with DIVYA hose and work to advance gaiting. TIME SPENT: Chart Review, examination and documentation requires greater than 25 minutes. Allergies Coded Allergies: Penicillins (Verified Allergy, Intermediate, Purititic rash of soles/ palms then red warm limbs, 04/13/17) PCN and Amoxicillin Vital Signs Vital Signs Date Time Temp Pulse Resp B/P (MAP) Pulse Ox O2 Delivery O2 Flow Rate FiO2 04/19/17 09:00 Room Air 04/19/17 06:00 98.7 60 18 146/71 (96) 96 Laboratory Data CBC/BMP Laboratory Tests 04/19/17 05:49 Red Blood Count 4.33, Mean Corpuscular Volume 84.8, Mean Corpuscular Hemoglobin 28.0, Mean Corpuscular Hemoglobin Concent 33.0, Red Cell Distribution Width 12.5 Current Medications Current Medications Current Medications Acetaminophen (Tylenol Tab) 650 mg Q4HP PRN PO MILD PAIN (PS 1-4); Start at 15:00; Stop 05/13/17 at 14:59 Aspirin (Ecotrin) 81 mg DAILY PO Last administered on 04/19/17 08:07; Start at 09:00; Stop 05/14/17 at 08:59 Atorvastatin Calcium (Lipitor) 10 mg QHS PO Last administered on 04/18/17 21: 03; Start 04/13/17 at 21:00; Stop 05/13/17 at 20:59 Enalapril Maleate (Vasotec) 5 mg BID PO Last administered on 04/16/17 08:41; Start 04/14/17 at 09:00; Stop 04/16/17 at 10:13; Status DC Enoxaparin Sodium (Lovenox) 40 mg DAILY SC Last administered on 04/19/17 08:08 ; Start 04/14/17 at 09:00; Stop 04/23/17 at 08:59 Home Med (Med Rec Complete!) ASDIRECTED XX ; Start 04/13/17 at 17:15; Stop at 17:58; Status DC Lisinopril (Prinivil) 10 mg BID PO ; Start 04/16/17 at 09:00; Stop 04/16/17 at 10:14; Status DC Lisinopril (Prinivil) 10 mg BID PO Last administered on 04/17/17 09:35; Start 04/16/17 at 21:00; Stop 04/17/17 at 11:10; Status DC Lisinopril (Prinivil) 30 mg BID PO Last administered on 04/18/17 08:14; Start 04/17/17 at 21:00; Stop 04/18/17 at 13:46; Status DC Lisinopril (Prinivil) 40 mg BID PO Last administered on 04/19/17 08:07; Start 04/18/17 at 21:00; Stop 05/18/17 at 20:59 Magnesium Hydroxide (Milk Of Magnesia) 30 ml DAILYPRN PRN PO CONSTIPATION Last administered on 04/17/17 09:35; Start 04/13/17 at 15:00; Stop 05/13/17 at 14:59 Nicotine (Nicoderm Cq 14mg) 1 patch DAILY TD Last administered on 04/19/17 08: 08; Start 04/16/17 at 09:00; Stop 04/23/17 at 06:00 Nicotine (Nicoderm Cq 21mg) 1 patch DAILY TD Last administered on 04/15/17 09: 10; Start 04/14/17 at 09:00; Stop 04/16/17 at 06:00; Status DC Nicotine (Nicoderm Cq 7 Mg) 1 patch DAILY TD ; Start 04/23/17 at 09:00; Stop 04/29 at 09:00 Pantoprazole Sodium (Protonix) 40 mg DAILY PO Last administered on 04/19/17 08 :07; Start 04/14/17 at 09:00; Stop 05/14/17 at 08:59 Senna (Senokot) 1 tab QHS PO ; Start 04/13/17 at 21:00; Stop 05/13/17 at 20:59 Sodium Biphosphate/ Sodium Phosphate (Fleet Enema) 1 ea DAILYPRN PRN [place] CONSTIPATION; Start 04/13/17 at 15:00; Stop 05/13/17 at 14:59 CINDY VYAS MD April 19, 2017 13:07
[2017-04-19 14:00] VITALS: BP 160/66
--- NOTE | 2017-04-19 14:31 | IPNPDOC ---
Subjective Date Seen The patient was seen on 04/19/17. Subjective Chief Complaint/HPI The patient is a 72-year-old female admitted with a reason for visit of CVA. Events since last encounter Pt states no complaints. Objective Physical Examination General Exam: Positive: Alert Eye Exam: Positive: PERRLA ENT Exam: Positive: Atraumatic Neck Exam: Positive: Supple Chest Exam: Positive: Clear to auscultation, Normal air movement Heart Exam: Positive: Rate Normal, Regular Rhythm, Normal S1, Normal S2, Negative: Murmurs, Rubs Abdomen Exam: Positive: Normal bowel sounds, Soft, Negative: Tenderness, Hepatospenomegaly Skin Exam: Positive: Nl turgor and temperature Assessment /Plan Problems (1) CVA (cerebral vascular accident) Problem Text: * Mgmt as per [facility]/ARU * PT/OT/ST * ASA 81mg/statin. (2) HTN (hypertension) Problem Text: * Cont Lisinopril 40 mg BID. Received inc dose x 2. * Dose adjusted for additional BP control. * Add chlorthalidone 12.5mg daily for addt'l BP control. * Update CMP in AM. (3) Hyperlipemia Problem Text: * Cont statin (4) Tobacco use Problem Text: * Nicoderm * Cont to encourage cessation. Plan/VTE VTE Prophylaxis Ordered?: Yes (lovenox) VS, I&O, 24H, Fishbone Vital Signs/I&O Vital Signs Date Time Temp Pulse Resp B/P (MAP) Pulse Ox O2 Delivery O2 Flow Rate FiO2 04/19/17 14:00 98.4 64 20 160/66 (97) 95 Room Air I&O- Last 24 Hours up to 6 AM 04/19/17 06:00 Intake Total 1530 ml Balance 1530 ml Laboratory Data CBC/BMP Laboratory Tests 04/19/17 05:49 Red Blood Count 4.33, Mean Corpuscular Volume 84.8, Mean Corpuscular Hemoglobin 28.0, Mean Corpuscular Hemoglobin Concent 33.0, Red Cell Distribution Width 12.5 Bethanie Lockhart April 19, 2017 14:31
[2017-04-19] MEDS: CHLORTHALIDONE 12.5MG PER 1/2 TABLET PO SCH (18:06)
[2017-04-19 20:00] VITALS: BP 200/64
[2017-04-19 20:29] VITALS: BP 164/70
[2017-04-19] MEDS: ATORVASTATIN 10 MG TAB PO SCH (20:30)
[2017-04-19] MEDS: SENNA 8.6 MG TAB (SENOKOT) PO SCH (20:30)
[2017-04-20 06:00] VITALS: BP 161/77
[2017-04-20 07:12] LABS: ALBUMIN 3.6 GM/DL (3.2-5.2); ALBUMIN/GLOBULIN RATIO 1.24 (1.00-1.93); ALKALINE PHOSPHATASE 90 U/L (45-117); ALT/SGPT 19 U/L (12-78); ANION GAP 5 MEQ/L (8-16); AST/SGOT 9 U/L (15-37); BILIRUBIN,TOTAL 0.4 MG/DL (0.2-1.0); BLOOD UREA NITROGEN 11 MG/DL (7-18); CALCIUM LEVEL 9.1 MG/DL (8.8-10.2); CARBON DIOXIDE LEVEL 34 MEQ/L (21-32); CHLORIDE LEVEL 103 MEQ/L (98-107); CREATININE FOR GFR 0.78 MG/DL (0.55-1.02); GLOMERULAR FILTRATION RATE > 60.0 (>39); GLUCOSE, FASTING 102 MG/DL (83-110); POTASSIUM SERUM 4.4 MEQ/L (3.5-5.1); SODIUM LEVEL 142 MEQ/L (136-145); TOTAL PROTEIN 6.5 GM/DL (6.4-8.2)
[2017-04-20] MEDS ORDERED: CHLO125TA PO (08:40)
[2017-04-20] MEDS ORDERED: NICO7PA TD (08:40)
[2017-04-20] MEDS ORDERED: NICO14PA TD (08:40)
[2017-04-20] MEDS ORDERED: PANT40TA2 PO (08:40)
[2017-04-20] MEDS ORDERED: LISI40TAB PO (08:40)
[2017-04-20] MEDS ORDERED: ATOR1TAB19 PO (08:40)
[2017-04-20 09:47] VITALS: BP 182/84
[2017-04-20] MEDS: LISINOPRIL 40 MG TAB PO SCH (09:47)
[2017-04-20] MEDS: PANTOPRAZOLE 40MG TAB (PROTONIX) PO SCH (09:47)
[2017-04-20] MEDS: ASPIRIN 81 MG ENTERIC TAB PO SCH (09:47)
[2017-04-20] MEDS: CHLORTHALIDONE 12.5MG PER 1/2 TABLET PO SCH (09:47)
[2017-04-20] MEDS: ENOXAPARIN 40 MG/0.4 ML SYRINGE (J1650) SC SCH (09:48)
[2017-04-20] MEDS: NICOTINE 14 MG/24 HR TRANSDERMAL TD SCH (09:49)
[2017-04-20 11:23] VITALS: BP 174/84
[2017-04-20 14:30] VITALS: BP 146/72
--- NOTE | 2017-04-20 14:52 | PMRDS ---
DATE OF ADMISSION: 04/13/2017 DATE OF DISCHARGE: 04/20/2017 DISCHARGE DIAGNOSES: 1. Rehabilitation of left pontine cerebrovascular accident (CVA) with right hemiparesis, dysarthria and decreased balance. 2. Atherosclerotic cardiovascular disease, including hypertension and hyperlipidemia. 3. Tobacco dependence. 4. 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 HISTORY: The patient is a 72-year-old white female who was in her normal state of health until 04/10/2017 when she started getting progressively weaker in her right upper and lower extremity and had progressive difficulty in speech where she felt it became thick and cumbersome. She was seen at the [facility], evaluated, and found to have sustained a left pontine cerebrovascular accident (CVA) and transferred to [facility] for acute rehabilitation on 04/13/2017 of the CVA after she had been stabilized. PHYSICAL EXAMINATION: The patient is a well-nourished, well-developed, elderly white female who is alert and oriented times four. Speech has very little dysarthria remaining and facial droop is essentially clear. The patient is oriented times four. Memory is intact. She is in very minimal to no acute distress, except when she has to sign or do something requiring fine motor with her left upper extremity which is her dominant side, she develops progressive intention tremor. Lungs are clear in all birch to auscultation. Coronary shows a regular rate and rhythm with normal S1, S2. Abdomen is benign with normal bowel sounds. Extremities have functional range of motion for bilateral upper and lower extremities. The patient has functional strength in the right upper and lower extremity and essentially 5/5 strength in the left upper and lower extremity with sensorium intact on the left side and fairly intact on the right side. PROCEDURES: No procedures were performed on this unit. DIAGNOSTIC AND LABORATORY DATA: Showed patient with a mildly elevated white blood cell count on admission here but has had that reduced to the normal range and normal hemoglobin and hematocrit with a recent mild rise in carbon dioxide to 34 on her electrolytes but normal renal function, and the remainder of her electrolytes are normal and liver function tests are all normal. Albumin is normal at 3.6. HOSPITAL COURSE: The patient was admitted on 04/13/2017 and started on a program of acute intensive physical, occupational and speech therapy. The patient made very good progress in improving the dysarthria and did not have any swallowing difficulties and speech was discontinued. The patient, however, had notable balance problems with standing, only being fair minus to fair to start with and for static and dynamic standing which has now gone to good to fair plus, and the patient required standby assistance in most activities of daily living (ADLs) and has now transitioned to modified independence using a rolling walker. However, the patient is anticipated to be able to benefit from either home care physical therapy (PT) and occupational therapy (OT) since she reports difficulty with transportation to leave the home and she is not able to drive due to her neurologic event and her ambulation which has improved from about 10-50 feet with standby touch-assist to greater than 200 feet and able to do more than four stairs with modified-independence using a rolling walker does not quite allow her community mobility levels. 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 DISCHARGE PLAN: The patient is scheduled to start with a new primary care provider as she had not been seeing a doctor or involved in care for several years before this event and hospital admissions. She is not to drive having sustained a major neurologic event. TIME SPENT ON DISCHARGE: Greater than 35 minutes. MTDD
[2017-04-23] MEDS ORDERED: NICOTINE 7 MG/24 HR TRANSDERMAL TD SCH (09:00)
== END 2017-04-20 15:35 | disposition home health service (06) | DRG 57 ==
LOC: M PM&R 14:50 → UNDOADMIN 14:50
PROVIDERS: ADMIT Physical Medicine & Rehabilitation; ATTEND Physical Medicine & Rehabilitation
DX: I69.351 Hemiplegia and hemiparesis following cerebral infarction affecting right dominant side (principal); I69.322 Dysarthria following cerebral infarction; I10 Essential (primary) hypertension; E78.5 Hyperlipidemia, unspecified; Z88.0 Allergy status to penicillin; Z88.1 Allergy status to other antibiotic agents; Z79.82 Long term (current) use of aspirin; G25.2 Other specified forms of tremor; I69.392 Facial weakness following cerebral infarction; F17.200 Nicotine dependence, unspecified, uncomplicated; I69.320 Aphasia following cerebral infarction; Z79.899 Other long term (current) drug therapy; I70.209 Unspecified atherosclerosis of native arteries of extremities, unspecified extremity; E11.9 Type 2 diabetes mellitus without complications